=== PATIENT | female | born 1980 | race Caucasian/White ===

== ENCOUNTER → 2018-03-15 | Emergency (ER) | payer OTHER ==
[~2018-03-15] VITALS: Ht 170.2 cm; Wt 83.9 kg
[~2018-03-15] MED LIST: AMBIEN5 MG; MORPHINE; NEURONTIN300 MG; PERCOCET 5/3251 TAB; VIVLODEX5 MG; WELLBUTRIN SR150 MG; ZANAFLEX2 M1
== END | disposition left against medical advice (07) ==
LOC: ER 13:22
DX: M54.5 Low back pain (principal); R35.0 Frequency of micturition